=== PATIENT | male | born 1985 ===

== ENCOUNTER 2020-01-20 11:01 | Outpatient (CLI) | payer OTHER | END 2020-01-20 11:05 | disposition home or self-care (01) | LOC: SONOGRAMA 11:01 | DX: N45.1 Epididymitis (principal) ==

== ENCOUNTER → 2020-09-26 | Emergency (ER) | payer OTHER ==
[~2020-09-26] VITALS: Ht 172.7 cm; Wt 74.8 kg
[~2020-09-26] MED LIST: NAPROXEN375 MG PO; SYNTHROID50 MCG
== END | disposition left against medical advice (07) ==
LOC: ER 19:26
DX: S61.422A Laceration with foreign body of left hand, initial encounter (principal); W26.0XXA Contact with knife, initial encounter; Y93.89 Activity, other specified; Y92.098 Other place in other non-institutional residence as the place of occurrence of the external cause; Y99.8 Other external cause status

== ENCOUNTER 2022-09-29 11:36 | Outpatient (CLI) | payer OTHER | END 2022-09-29 11:46 | disposition home or self-care (01) | LOC: MRI 11:36 | PROVIDERS: ATTEND Internal Medicine Endocrinology, Diabetes & Metabolism | DX: E29.1 Testicular hypofunction (principal) | CPT/HCPCS: 70551 ==

== ENCOUNTER 2023-09-18 05:43 | Day surgery (SDC) | payer OTHER ==
[2023-09-15 11:54] LABS: URINE APPEARANCE Clear; URINE BILIRRUBIN Negative (NEGATIVE); URINE BLOOD Large; URINE COLOR Yellow; URINE GLUCOSE Negative (NEGATIVE); URINE LEUKOCYTE Negative; URINE NITRATE Negative; URINE PROTEIN Trace (NEGATIVE)
[2023-09-15 12:00] LABS: URINE BACTERIA 21.4 uL (0.0-1933); URINE EPITHELIAL CELLS 2.6 uL (0.0-38.8); URINE RBC 450.1 uL (0.0-20.8); URINE WBC 2.3 uL (0.0-23.2)
[2023-09-15 12:07] LABS: HEMATOCRIT 42.4 % (39.0-48.0); HEMOGLOBIN 14.8 g/dL (13-16.00); MEAN CELL VOLUME 86.6 fL (80.0-100.00); MEAN CORPUSCULAR HEMOGLOBIN 30.3 pg (27.00-32.0); PLATELET COUNT 250 K/uL (150-450); RED CELL DISTRIBUTION WIDTH 13.2 % (11.5-14.5)
[2023-09-15 12:26] LABS: ALBUMIN 3.8 gm/dL (3.4-5.0); CALCIUM 9.3 mg/dL (8.5-10.1); CREATININE SERUM 0.98 mg/dL (0.70-1.30); GFR 84.71; PHOSPHOROUS 3.1 mg/dL (2.5-4.9); POTASSIUM 4.36 mEq/L (3.5-5.1)
[2023-09-15 12:34] LABS: INR 0.98; PARTIAL THROMBOPLASTIN TIME 27.2 SECONDS (22.0-34.0)
[2023-09-15 12:37] LABS: PROTHROMBIN TIME 10.3 SECONDS (9.0-11.5)
[2023-09-18] MEDS ORDERED: PERCOCET 5-3251 EACH PO (08:35)
[2023-09-18] MEDS ORDERED: NEURONTIN300 MG PO (08:35)
[2023-09-18] MEDS ORDERED: COLACE100 MG PO (08:35)
== END 2023-09-18 12:15 | disposition home or self-care (01) ==
LOC: CIR.AMB 05:43
PROVIDERS: ATTEND Surgery
DX: K64.4 Residual hemorrhoidal skin tags (principal); K64.8 Other hemorrhoids; K62.89 Other specified diseases of anus and rectum; A63.0 Anogenital (venereal) warts; K64.5 Perianal venous thrombosis; Z20.822 Contact with and (suspected) exposure to COVID-19; I10 Essential (primary) hypertension

== ENCOUNTER 2025-01-12 10:02 | Outpatient (CLI) | payer OTHER ==
[~2025-01-12 10:02] MED LIST changes: +COLACE100 MG PO; +NEURONTIN300 MG PO; +PERCOCET 5-3251 EACH PO
== END 2025-01-12 10:04 | disposition home or self-care (01) ==
LOC: MRI 10:02
PROVIDERS: ATTEND Physical Medicine & Rehabilitation
DX: M54.17 Radiculopathy, lumbosacral region (principal)
CPT/HCPCS: 72148